=== PATIENT | male | born 1955 | race Caucasian/White ===

== ENCOUNTER 2019-09-04 14:56 | Inpatient (IN) | payer OTHER ==
--- NOTE | 2019-09-03 20:00 | NUR ---
awake,alert x 4 no complaints ,telemetry sinus rhythm,in no distress.
[~2019-09-04] VITALS: Ht 152.4 cm; Wt 81.6 kg
[~2019-09-04 14:56] MED LIST: ACET325T53 PO; ALFU10TA10 PO; LOSA100T31 PO; MECL-159 PO; TIMO5SOL11 EACHEYE
--- NOTE | 2019-09-04 15:17 | NUR ---
Patient ambulating with steady gait. A&O x4. c/o SOB and progressive chest pressure x1 wk. 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 After getting an EKG at his house, paramedics asked if he wanted to go to the hospital. He then elected to be driven by his to the ER. Patient states that he's been to multiple emergeny rooms due to similar problem but today it got progressively worse. Speech is clear and able to make needs known / follow commands. Breathing even and unlabored. no cough noted. patient satting at 96% on RA. Denies any CLARK, Nausea, Blurred vision. Safety precautions implemented. s/r up x2
[2019-09-04 15:42] LABS: BASOPHILS % (AUTO) 0.6 % (0.0-2.0); EOSINOPHILS % (AUTO) 0.4 % (0.0-7.0); HEMATOCRIT 45.9 % (36.7-47.1); HEMOGLOBIN 14.9 g/dL (12.5-16.3); LYMPHOCYTES # (AUTO) 0.9 K/uL (20.0-40.0); LYMPHOCYTES % (AUTO) 12.7 % (20.5-51.5); MEAN CORPUSCULAR HEMOGLOBIN 29.1 uug (23.8-33.4); MEAN CORPUSCULAR HGB CONC 32 g/dL (32.5-36.3); MEAN CORPUSCULAR VOLUME 89.8 fL (73.0-96.2); MONOCYTES # (AUTO) 0.4 K/uL (2.0-10.0); MONOCYTES % (AUTO) 5.7 % (0.0-11.0); NEUTROPHILS # (AUTO) 5.8 K/uL (1.8-8.9); NEUTROPHILS % (AUTO) 80.6 % (38.5-71.5); PLATELET COUNT (AUTO) 130 K/uL (152-348); RED BLOOD CELL COUNT(AUTO) 5.11 MIL/uL (4.06-5.63); WHITE BLOOD COUNT (AUTO) 7.2 K/uL (3.6-10.2)
--- NOTE | 2019-09-04 15:45 | NUR ---
Dr. Daly at bedside for MSE
[2019-09-04 15:49] LABS: CREATININE 1.2 mg/dL (0.6-1.3); POTASSIUM 4.1 mmol/L (3.5-5.1)
[2019-09-04 16:01] LABS: BILIRUBIN,DIRECT 0.1 mg/dL (0.0-0.2); BILIRUBIN,TOTAL 0.7 mg/dL (0.2-1.0); TOTAL PROTEIN, SERUM 6.8 g/dL (6.4-8.2)
[2019-09-04] MEDS ORDERED: ASPIRIN 81 MG TAB.CHEW ONE (16:13)
[2019-09-04] MEDS ORDERED: NITROGLYCERIN 0.4 MG/TAB BOTTLE SL ONE ×2 (16:13→16:15)
--- NOTE | 2019-09-04 16:14 | NUR ---
Patient states Chest Pain about 4/10 on the pain scale
[2019-09-04] MEDS ORDERED: ASPIRIN 81 MG TAB.CHEW PO ONE (16:15)
--- NOTE | 2019-09-04 16:19 | NUR ---
Patient denies any chest pain at this time. States the sensation is more of a pressure at this time.
--- NOTE | 2019-09-04 16:23 | NUR ---
Called [facility] for panel placement
--- NOTE | 2019-09-04 16:43 | NUR ---
Pt. admitted to Tele , under care of Dr. Mcdonald Belongs List completed
[2019-09-04 17:00] VITALS: BP 115/70
[2019-09-04] MEDS ORDERED: [UNRECOGNIZED DRUG - CODE] TP (17:13)
[2019-09-04] MEDS ORDERED: ASPI81TA31 PO (17:13)
[2019-09-04] MEDS ORDERED: KETO5DRO72 EACHEYE (17:13)
[2019-09-04] MEDS ORDERED: HYDROCODONE/APAP 5-325MG TABLET PO PRN (17:15)
[2019-09-04] MEDS ORDERED: ZOLPIDEM 5 MG TABLET PO PRN (17:15)
[2019-09-04] MEDS ORDERED: MAGNESIUM HYDROXIDE 30 ML LIQUID UDC PO PRN (17:15)
[2019-09-04] MEDS ORDERED: ACETAMINOPHEN 325 MG TABLET PO PRN (17:15)
[2019-09-04] MEDS ORDERED: ONDANSETRON 4 MG/2 ML VIAL IV PRN (17:15)
[2019-09-04] MEDS ORDERED: Z GUARD REMEDY PASTE 57 GM TUBE TOP PRN (17:15)
--- NOTE | 2019-09-04 17:36 | NUR ---
ADMITTED FROM HOME VIA ER C/O CHEST PRESSURE X1 WEEK, ALERT AND ORIENTED X3, NO SS OF PAIN OR SOB WHEN TRANSFERRED FROM ER TO 302. ROUTINE ADMISSION ASSESSMENT INITIATED, SEEN BY DR OCHOA WITH ORDERS. SB ON MONITOR
[2019-09-04 20:00] VITALS: BP 112/64
[2019-09-05] VITALS: BP 125/70
[2019-09-05 04:00] VITALS: BP 122/66
[2019-09-05 06:48] LABS: BASOPHILS % (AUTO) 0.8 % (0.0-2.0); EOSINOPHILS # (AUTO) 0.1 K/uL (0.0-0.7); EOSINOPHILS % (AUTO) 2.1 % (0.0-7.0); HEMATOCRIT 42.6 % (36.7-47.1); HEMOGLOBIN 14.2 g/dL (12.5-16.3); LYMPHOCYTES # (AUTO) 1.9 K/uL (20.0-40.0); LYMPHOCYTES % (AUTO) 36.6 % (20.5-51.5); MEAN CORPUSCULAR HEMOGLOBIN 29.8 uug (23.8-33.4); MEAN CORPUSCULAR HGB CONC 33 g/dL (32.5-36.3); MEAN CORPUSCULAR VOLUME 89.5 fL (73.0-96.2); MONOCYTES # (AUTO) 0.6 K/uL (2.0-10.0); MONOCYTES % (AUTO) 11.2 % (0.0-11.0); NEUTROPHILS # (AUTO) 2.6 K/uL (1.8-8.9); NEUTROPHILS % (AUTO) 49.3 % (38.5-71.5); PLATELET COUNT (AUTO) 112 K/uL (152-348); RED BLOOD CELL COUNT(AUTO) 4.76 MIL/uL (4.06-5.63); WHITE BLOOD COUNT (AUTO) 5.2 K/uL (3.6-10.2)
[2019-09-05 07:02] LABS: CREATININE 1.3 mg/dL (0.6-1.3); MAGNESIUM 2.1 mg/dL (1.8-2.4); POTASSIUM 4.1 mmol/L (3.5-5.1)
--- NOTE | 2019-09-05 07:45 | NUR ---
Received patient calm and in bed. No signs of distress or chest pressure. soccer player on. Alter and oriented times 4. Will continue to monitor
--- NOTE | 2019-09-05 10:00 | NUR ---
Seen by hospitalist with orders for discharge and follow up with primary. COVI-19 test done, advise patient of following up results. Medications and follow up instructions given to patient. remains sinus rhythm on monitor MD and patient aware. Continue with discharge planning
--- NOTE | 2019-09-05 10:58 | NUR ---
Patient calm and sitting at the side of the bed dressed and ready to go with belongings in hand. Discharge paperwork and teaching given to patient. child monitor and left AC IV discontinued.
== END 2019-09-05 10:58 | disposition home or self-care (01) | DRG 204 ==
LOC: ER 14:58 → TELE3 17:00
PROVIDERS: ADMIT Family Medicine; ATTEND Family Medicine
DX: R07.81 Pleurodynia (principal); D69.6 Thrombocytopenia, unspecified; R73.9 Hyperglycemia, unspecified; R27.0 Ataxia, unspecified; I10 Essential (primary) hypertension; M54.2 Cervicalgia
CPT/HCPCS: 36415; 70030-TC; 71045; 83735; 84100; 85025; 85730; 93005; G0378; U0003-CS

== ENCOUNTER 2019-09-06 21:33 | Observation (INO) | payer OTHER ==
[~2019-09-06] VITALS: Ht 175.3 cm; Wt 78.0 kg
[~2019-09-06 21:33] MED LIST changes: -ALFU10TA10 PO; +ASPI81TA31 PO; +KETO5DRO72 EACHEYE; -MECL-159 PO; +[UNRECOGNIZED DRUG - CODE] TP
--- NOTE | 2019-09-06 21:38 | NUR ---
Dr. Peña at bedside for MSE.
--- NOTE | 2019-09-06 21:55 | NUR ---
Xray at bedside.
[2019-09-06 22:03] LABS: CREATININE 1.4 mg/dL (0.6-1.3); POTASSIUM 4.1 mmol/L (3.5-5.1)
[2019-09-06 22:15] LABS: BILIRUBIN,DIRECT 0.2 mg/dL (0.0-0.2); BILIRUBIN,TOTAL 0.8 mg/dL (0.2-1.0); TOTAL PROTEIN, SERUM 7.4 g/dL (6.4-8.2)
[2019-09-06 22:29] LABS: BASOPHILS % (AUTO) 0.8 % (0.0-2.0); EOSINOPHILS # (AUTO) 0.1 K/uL (0.0-0.7); EOSINOPHILS % (AUTO) 1.1 % (0.0-7.0); HEMATOCRIT 47.4 % (36.7-47.1); HEMOGLOBIN 15.6 g/dL (12.5-16.3); LYMPHOCYTES # (AUTO) 1.4 K/uL (20.0-40.0); LYMPHOCYTES % (AUTO) 25.9 % (20.5-51.5); MEAN CORPUSCULAR HEMOGLOBIN 29.7 uug (23.8-33.4); MEAN CORPUSCULAR HGB CONC 33 g/dL (32.5-36.3); MONOCYTES # (AUTO) 0.5 K/uL (2.0-10.0); MONOCYTES % (AUTO) 9.9 % (0.0-11.0); NEUTROPHILS # (AUTO) 3.3 K/uL (1.8-8.9); NEUTROPHILS % (AUTO) 62.3 % (38.5-71.5); PLATELET COUNT (AUTO) 130 K/uL (152-348); RED BLOOD CELL COUNT(AUTO) 5.26 MIL/uL (4.06-5.63); WHITE BLOOD COUNT (AUTO) 5.3 K/uL (3.6-10.2)
[2019-09-06] MEDS ORDERED: MORPHINE SULFATE 2 MG/1 ML DISP.SYRIN IV ONE (23:00)
[2019-09-06] MEDS ORDERED: ASPIRIN 81 MG TAB.CHEW PO ONE ×2 (23:00→23:15)
[2019-09-06] MEDS ORDERED: ASPIRIN 81 MG TAB.CHEW ONE ×2 (23:10→23:12)
[2019-09-06] MEDS ORDERED: MORPHINE SULFATE 2 MG/1 ML DISP.SYRIN ONE (23:10)
[2019-09-06] MEDS ORDERED: IV NORMAL SALINE 250 ML IV ONE (23:37)
[2019-09-06] MEDS ORDERED: IOHEXOL 300MG/ML 100 ML INFUS..BTL ONE (23:37)
[2019-09-06] MEDS ORDERED: SWABABLE VALVE TRANSFER SET EA MC ONE (23:37)
--- NOTE | 2019-09-06 23:45 | NUR ---
Patient out of ER for CT.
--- NOTE | 2019-09-06 23:58 | NUR ---
Patient back to ER from CT.
[2019-09-07] MEDS ORDERED: IV NORMAL SALINE 500 ML BAG IV ONE
--- NOTE | 2019-09-07 00:45 | NUR ---
Called [facility] to page Dr. Mahesh Kam.
--- NOTE | 2019-09-07 01:00 | NUR ---
Report given to HADLEY Putnam
--- NOTE | 2019-09-07 01:07 | NUR ---
Dr. Peña on panel call with Dr. Mahesh Kam. Patient accepted for admission to [facility], diagnosis: chestpain.
[2019-09-07] MEDS ORDERED: NITROGLYCERIN 0.4 MG/TAB BOTTLE SL PRN (01:15)
[2019-09-07] MEDS ORDERED: MAGNESIUM HYDROXIDE 30 ML LIQUID UDC PO PRN (01:15)
[2019-09-07] MEDS ORDERED: ACETAMINOPHEN 325 MG TABLET PO PRN (01:15)
[2019-09-07] MEDS ORDERED: MORPHINE SULFATE 2 MG/1 ML DISP.SYRIN IV PRN (01:15)
[2019-09-07] MEDS ORDERED: HYDROCODONE/APAP 5-325MG TABLET PO PRN (01:15)
[2019-09-07] MEDS ORDERED: ONDANSETRON 4 MG/2 ML VIAL IV PRN (01:15)
[2019-09-07 01:51] LABS: THYROID STIMULATING HORMONE 4.48 mIU/mL (0.358-3.740)
[2019-09-07 02:05] VITALS: BP 134/51
--- NOTE | 2019-09-07 02:30 | NUR ---
Admitted a 63 years old male with Diagnosis of Chest pain. Patient arrived at the floor at 0215. Patient AAOx4. In no acute distress. Denies any SOB. Reported chest pain, located on right upper chest area with pain scale of 3/10 at time of admission. Patient reported pain tolerable at this level up to 7/10. IV site on right AC intact and patent. Sinus yaw on tele at 47/min. Patient baseline HR at the 40's. Routine admission care done. Plan of care initiated. Safety measure initiated and call lazcano within reached.
[2019-09-07 04:21] VITALS: BP 121/62
--- NOTE | 2019-09-07 06:06 | NUR ---
AOx4. In no acute distress. Denies any SOB. Pain manage with round the clock, Dilaudid per order. Right upper arm midline intact and patent. No adverse reaction noted from IV ABX. Needs attended to and met. Safety measure maintained and call lazcano within reached. Addendum: 09/07/19 at 0607 by MARTINA HARDEN RN wrong patient
--- NOTE | 2019-09-07 06:07 | NUR ---
AAOx4. In no acute distress. Denies any chest pain or SOB at this time. IV site on right AC remains intact and patent. Sinus yaw on tele at 42/min. Needs assessed and attended to. Safety measure maintained and call lazcano within reached.
--- NOTE | 2019-09-07 08:00 | NUR ---
Received patient calm and lying in bed. A&O x4 and cooperative. No signs of distress or discomfort, no complaints of chest pain at the moment. Patient is on the wood carver hand, sinus yaw at 44/min. 20 patrizia Right AC remains intact. Bed low and call lazcano within reach. Will continue to monitor.
[2019-09-07] MEDS ORDERED: ASPIRIN 81 MG TAB.CHEW PO SCH (09:00)
[2019-09-07] MEDS ORDERED: LOSARTAN POTASSIUM 50 MG TABLET PO SCH (09:00)
[2019-09-07] MEDS ORDERED: IV NS 1000 ML 1,000 ML IV ONE (10:00)
--- NOTE | 2019-09-07 11:20 | NUR ---
Patient went to [facility] for Cardiac CTA, Picked up by 2 EMT in stable condition.
[2019-09-07 14:00] VITALS: BP 118/62
--- NOTE | 2019-09-07 14:00 | NUR ---
Patient came back from [facility] in stable condition.
--- NOTE | 2019-09-07 16:00 | NUR ---
Patient is awake, alert and verbally responsive. Relayed cardiac CTA to Dr. Bautista and cleared him to be discharge today. Seen and examined by STUDENT COUNSELLOR Tae with Order to be discharge today. Discharge Instruction given to Patient and verbalized Understanding. All belongings was sent and signed by Patient. Removed quality assurance monitor body, IV site and Wrist band. Patient was picked up by via Private car in stable condition.
== END 2019-09-07 16:00 | disposition home or self-care (01) ==
LOC: ER 21:33 → TELE3 09-07 02:01 → INTOOBSV 09-07 02:01 → TELE3 09-07 09:02
PROVIDERS: ADMIT Nurse Practitioner Acute Care; ATTEND Nurse Practitioner Acute Care
DX: M94.0 Chondrocostal junction syndrome [Tietze] (principal); N17.0 Acute kidney failure with tubular necrosis; R00.1 Bradycardia, unspecified; E02 Subclinical iodine-deficiency hypothyroidism; R27.0 Ataxia, unspecified; M54.2 Cervicalgia; H40.9 Unspecified glaucoma; F07.81 Postconcussional syndrome; D69.6 Thrombocytopenia, unspecified; R73.03 Prediabetes; I10 Essential (primary) hypertension
CPT/HCPCS: 80061; 80076; 80048; 83036; 83880; 84439; 84443; 85025; 85379; 85730; 84484 ×3; 36415 ×2; 93005 ×3; 71045; 71275; 99291; 96361; 96374; Q9967; J2270; G0378 ×14; 70030-TC; A4663; J7030; J7040; J7050